=== PATIENT | female | born 1965 | race Caucasian/White ===

== ENCOUNTER 2021-02-26 14:16 | Outpatient (CLI) | payer OTHER, SELFPAY ==
--- NOTE | ~2021-02-26 | DEXA_ITS ---
Bone Density Report Name: MARSHA PEREZ Age: 56 Sex: Female Ethnicity: White Date of : 1965 Indication: screening for osteoporosis; height loss; Referring Provider: Kristin Burt Study: Bone densitometry was performed. Exam Date: February 26, 2021 Accession number: Bone Density: Region BMD T-score Z-score Classification AP Spine(L1-L4) 1.001 -0.4 0.8 Normal Femoral Neck (Left) 0.809 -0.4 0.8 Normal Total Hip (Left) 0.925 -0.1 0.6 Normal Femoral Neck (Right) 0.769 -0.7 0.4 Normal Total Hip (Right) 0.930 -0.1 0.7 Normal Femoral Neck Mean 0.789 -0.5 0.6 Normal Total Hip Mean 0.928 -0.1 0.7 Normal World Health Organization criteria for BMD impression classify patients as: Normal (T-score at or above -1.0), Osteopenia (T-score between -1.0 and -2.5), or Osteoporosis (T-score at or below -2.5). 10-year Fracture Risk: FRAX not reported because: Premenopausal woman All T-scores for Spine Total, Hip Total, Femoral Neck at or above -1.0 Clinical Information Provided by Patient: Has used the following medications: Vitamin D, Calcium Patient maximum height was 65 No regular weight bearing exercise Drinks caffeinated beverages Onset of menses at age 16 Premenopausal Number of children 1 Impression: The patient's bone mass is within expected range for age, gender and ethnicity. Discussion: BONE DENSITY IS WITHIN EXPECTED LIMITS FOR AGE, SEX AND RACE. Bone density is within expected limits for age, sex and race at all sites measured. The patient should follow a healthful lifestyle (good nutrition with adequate calcium and vitamin D, and appropriate weight-bearing exercise). Follow-Up: Consider repeating this study in 5 years or sooner if there is some new clinical indication. Reported by: Dr. Jim Nicole on 02/26/2021 3:01:00 PM. Reviewed, dictated and finalized at location A. [facility]
--- NOTE | ~2021-02-26 | MM_ITS ---
EXAMINATION: MM screening [facility] BI w anjali HISTORY: Screening TECHNIQUE: Craniocaudal and mediolateral oblique 3-D tomosynthesis images were obtained and synthetic 2-D images were generated. CAD analysis was submitted and interpreted. COMPARISON: Comparison to multiple prior studies sequentially, with oldest reviewed study dated 08/2012. BREAST PARENCHYMAL COMPOSITION: There are scattered areas of fibroglandular density. FINDINGS: There is a developing cluster of calcifications in the upper outer quadrant of the left sherlyn ast, middle third. The right breast is stable without evidence for malignancy. IMPRESSION: 1. Developing cluster of left breast calcifications, upper outer quadrant. 2. Magnification views are recommended. BI-RADS Category 0: Incomplete: Needs additional imaging evaluation. Reviewed, dictated and finalized at location A. [employer]
== END 2021-02-26 14:17 | disposition home or self-care (01) ==
LOC: CHSIMG 14:20
PROVIDERS: PCP Internal Medicine; Visit Provider Internal Medicine
DX: Z12.31 Encounter for screening mammogram for malignant neoplasm of breast (principal); Z78.0 Asymptomatic menopausal state; Z13.820 Encounter for screening for osteoporosis
CPT/HCPCS: 77063; 77067; 77080

== ENCOUNTER 2021-03-02 09:59 | Outpatient (CLI) | payer OTHER, SELFPAY ==
--- NOTE | ~2021-03-02 | MM_ITS ---
EXAMINATION: MM diagnostic sarah LT w anjali HISTORY: Follow-up left breast calcifications TECHNIQUE: Additional 3-D tomosynthesis images of the left breast were performed and synthetic 2-D im ages were generated. CAD analysis was submitted and interpreted. COMPARISON: 02/26/2019 BREAST PARENCHYMAL COMPOSITION: Breast composed of scattered areas of fibroglandular density FINDINGS: There is a cluster of indeterminate calcifications in the upper outer quadrant of the left breast, middle third. There are no suspicious masses or architectural distortion. IMPRESSION: 1. Clustered indeterminate left breast calcifications. 2. Stereotactic left breast biopsy recommended. BI-RADS category 4, suspicious findings. Reviewed, dictated and finalized at location A. CARRIER HAULER PUSHER
== END 2021-03-02 10:00 | disposition home or self-care (01) ==
LOC: CHSIMG 10:00
PROVIDERS: PCP Internal Medicine; Visit Provider Internal Medicine
DX: R92.8 Other abnormal and inconclusive findings on diagnostic imaging of breast (principal)
CPT/HCPCS: 77061; 77065; G0279

== ENCOUNTER 2024-12-06 10:52 | Outpatient (CLI) | payer OTHER, SELFPAY ==
--- NOTE | ~2024-12-06 | XR_ITS ---
EXAMINATION: XR foot RT min 3V, 12/06/2024 11:00 CDT HISTORY: R HALLUX VALGLUS COMPARISON: No comparisons available. Findings: Hallux valgus. Moderate degenerative changes first metatarsophalangeal joint with small erosions Soft tissues unremarkable. Impression: No acute fracture or malalignment. Reviewed, dictated and finalized at location P. Impression: No acute fracture or malalignment.
--- OUTSIDE RECORDS SUMMARY | 2024-12-06 12:57 | XMS_ITS | Clinical Summary ---
Author Organization [facility] Address [address] [place] [id number] Care Team Providers Care Critical Care Technician Name Role Phone Kristin Burt MD Primary Care Provider Allergies No known active allergies Medications No known medications Active Problems Problem Noted Date Diagnosed Date Abnormal mammogram 03/11/2012 Encounters Date Type Department Care Team Description 11/12/2024 7:45 AM CDT - 11/12/2024 11:59 PM CDT Hospital Encounter [facility] [address] [facility] [address] [place] [address] [address] [place] [address] Screening mammogram, encounter for Discharge Disposition: Discharge to home or self care from Last 3 Months Surgical History Surgery Date Site/Laterality Comments BREAST BIOPSY 04/10/2021 Left Family History Medical History Relation Name Comments Pancreatic cancer Mother Relation Name Status Comments Mother Social History Tobacco Use Types Packs/Day Years Used Date Smoking Tobacco: Never Comments No Sex and Gender Information Value Date Recorded Sex Assigned at Not on file Legal Sex Female 3:44 AM 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 Gender Identity Not on file Sexual Orientation Not on file Obstetrics History Para Term AB IAB SAB Ectopic Multiple Livin g Live Births 1 1 1 Date Outcome GA Total Labor Labor/2nd/3rd Weight Sex Type Anes PTL Renuka A1 A5 Name Clin Term Last Filed Vital Signs Vital Sign Reading Time Taken Comments Blood Pressure - - Pulse - - Temperature - - Respiratory Rate - - Oxygen Saturation - - Inhaled Oxygen Concentration - - Weight 93 kg (205 lb) 11/12/2024 8:00 AM CDT Height 160 cm (5' 2.99) 11/12/2024 8:00 AM CDT Body Mass Index 36.32 11/12/2024 8:00 AM CDT Plan of Treatment Health Maintenance Due Date Last Done Comments Cervical Cancer Screening 1965 Colon Cancer Screening-Colonoscopy 1965 Depression Screening 1965 Hepatitis C Screening 1965 Hepatitis B Screening 02/25/1982 Regular Well Visit/Exam 18-64 02/25/1982 Zoster Vaccine (1 of 2) 02/25/2014 Covid-19 Vaccine (3 - season) 2024 06/01/2020, 05/11/2020 Influenza Vaccine (#1) 2024 , 12/16/2017, 12/05/2015, Additional history exists DTaP/Tdap/Td Vaccine (2 - Td or Tdap) 01/18/2025 01/18/2015 Breast Cancer Screening-Mammogram 11/12/2025 11/12/2024, 03/18/2023, 03/26/2012 Pneumococcal vaccine <65 Aged Out No longer eligible based on patient's age to complete this topic Procedures Procedure Name Priority Date/Time Associated Diagnosis Comments SCREENING MAMMOGRAM BILATERAL W GEN[facility] Schedule Routine, Read Routine (OP Routine) 11/12/2024 8:10 AM CDT Screening mammogram, encounter for from Last 3 Months Results * Screening Mammogram Bilateral W [facility] (11/12/2024 8:10 AM CDT) Anatomical Region Laterality Modality Breast Bilateral Mammography Impressions 11/12/2024 8:25 AM CDT BI-RADS ATLAS category (overall): 2 - Benign There is no mammographic evidence of malignancy. A 1 year screening mammogram is recommended. The patient has been or will be contacted. We recommend annual screening mammography for women at average risk of breast cancer beginning at age 40, based on guidelines of the [employer] (ACR Practice Parameter for the Performance of Screening and Diagnostic Mammography) and [employer]. For women with and elevated risk of breast cancer, please refer to the ACR Practice Parameter for specific screening recommendations. The patient will be entered into a reminder system with a target due date of 1 year for her next screening exam. Narrative 11/12/2024 8:25 AM CDT Screening Mammogram Bilateral W [facility]: 11/12/24 The study was acquired using full field digital technology and interpreted from soft copy. 2D digital mammographic views, as well as 3D digital tomosynthesis were performed in the CC and MLO projections. CLINICAL: Screening mammogram, encounter for. No relevant medical history has been documented for this patient. No known family history of breast cancer. COMPARISONS: 03/18/2023 Screening Mammogram Bilateral W [facility] 04/10/2021 [facility] Post Clip Placement Left 04/10/2021 Stereotactic Breast Biopsy Left 04/02/2021 Diagnostic Mammogram Left W [facility] 03/26/2021 Breast Imaging Outside Consult 03/02/2021 Breast Imaging Diagnostic Outside Reference 2021 Breast Imaging Screening Outside Reference 2021 Breast Imaging Screening Outside Reference 06/19/2018 Breast Imaging Screening Outside Reference 01/23/2016 Breast Imaging Screening Outside Reference 09/16/2013 Breast Imaging Screening Outside Reference 03/26/2012 Screening Mammogram W [facility] 03/26/2012 DIAGNOSTIC MAMMOGRAM 2D BILATERAL 03/02/2012 Breast Imaging Diagnostic Outside Reference BREAST TISSUE: The breasts are heterogeneously dense, which may obscure small masses. FINDINGS: There are 2 biopsy marker clips in the left breast. A small benign mass is unchanged in the subareolar left breast. Unchanged intramammary lymph nodes in the right breast. There is no new suspicious finding in either breast on mammogram. us Self Screening Mammogram IMG MAMMO PROCEDURES Fi nal Result from Last 3 Months Insurance CIGNA SANDYEW CIGNA IBEW CIGNA IBEW Care Teams Critical Care Technician Relationship Specialty Start Date End Date Kristin Burt MD [address] [place] [address] PCP - General Internal Medicine 03/05/21
--- OUTSIDE RECORDS SUMMARY | 2024-12-06 12:57 | XMS_ITS | Patient Health Record ---
Author Organization [facility] Address [address] [place], [place] [id number] Care Team Providers Care Java Flex Developer Name Role Phone Javed Marilou Primary Care Provider ULISES López Unavailable [phone] Allergies No Known Allergies Reason For Referral No Information Medications Medication SIG (Take, Route, Fr equency, Duration) Notes Start Date End Date Status Azithromycin 250 MG TAKE 2 TABLETS BY [facility] TODAY, THEN TAKE 1 TABLET DAILY FOR 4 DAYS Oral; Duration: 5 Days Active Praluent 75 MG/ML Subcutaneous; Durati on: 28 Days Active Repatha 140 MG/ML PLEASE SEE ATTACHED FOR DETAILED DIRECTIONS Subcutaneous; Duration: 84 Days Active methylPREDNISolone 4 MG Oral; Duration: 6 Days Active Meloxicam 15 MG Oral; Duration: 30 Days Active Plan Of Treatment No Information Insurance Providers Payer Name Payer Address Payer Phone Subscriber Number Group Number Insured Name Patient Relationship to Insured Coverage Start Date [facility]age End Date [facility] [address] [place] [phone] [id number] PB PEREZ Spouse - patient is the spouse of the insured Medical (General) History Surgical History Surgery Date(Month/Year) section 1987 Gall Bladder 2004
== END 2024-12-06 10:53 | disposition home or self-care (01) ==
LOC: CHSIMG 10:55
PROVIDERS: PCP Internal Medicine; Visit Provider Internal Medicine
DX: M20.11 Hallux valgus (acquired), right foot (principal)
CPT/HCPCS: 73630